=== PATIENT | female | born 1970 | race Caucasian/White ===

== ENCOUNTER 2022-10-24 08:16 | Day surgery (SDC) | payer OTHER ==
[~2022-10-24] VITALS: Ht 157.5 cm; Wt 97.5 kg
[2022-10-24] MEDS ORDERED: LIDOCAINE 2% 100 MG/5 ML UJET TP ONE (09:16)
[2022-10-24] MEDS ORDERED: fentaNYL citrate 0.05 MG/ML VIAL ONE (09:16)
[2022-10-24] MEDS ORDERED: fentaNYL citrate 0.05 MG/ML VIAL IVP ONE (10:05)
== END 2022-10-24 10:04 | disposition home or self-care (01) ==
LOC: MDS 08:16 → MMU 08:16 → MDS 10:04
PROVIDERS: ATTEND Internal Medicine Gastroenterology
DX: Z12.11 Encounter for screening for malignant neoplasm of colon (principal); K63.5 Polyp of colon; K57.30 Diverticulosis of large intestine without perforation or abscess without bleeding; I10 Essential (primary) hypertension; E78.00 Pure hypercholesterolemia, unspecified; Z79.899 Other long term (current) drug therapy
CPT/HCPCS: 45385; J3010